=== PATIENT | female | born 1955 | race Two or more races ===

== ENCOUNTER 2016-08-11 12:41 | Emergency (ER) | payer BC, OTHER ==
[~2016-08-11 12:41] MED LIST: CIPR500T94 PO; GLIP10TA13 PO; HYDR-2666 PO; HYDR-2762 PO; INSU100I13 SQ; LISINOPRIL PO; METF10002 PO; PHEN-373 PO; SIMVASTATIN PO
[2016-08-11 12:46] VITALS: BP 156/94
--- NOTE | 2016-08-11 13:11 | RAD ---
Exam: PA and lateral chest radiograph History: Cough, sore throat for several days. Comparison: CT chest 07/02/2016. Findings: Cardiomediastinal silhouette is within normal limits for size. Bilateral lung marin are free of focal infiltrate. No pleural effusion is seen. Impression: No acute cardiopulmonary process.
[2016-08-11] MEDS ORDERED: AMOX1TAB61 PO (13:22)
[2016-08-11] MEDS ORDERED: CIPR10DR AD (13:22)
--- NOTE | 2016-08-11 13:22 | PHYS DOC ---
Past Medical History Past Medical History: Diabetes-Type II, High Cholesterol, Hypertension, Kidney Stone Past Surgical History: Hysterectomy Additional Past Surgical Histo: parathyroid removal, kidney stone, left knee miniscus, jenn elbow, fisure Alcohol Use: Occasionally Drug Use: None Adult General Chief Complaint Chief Complaint: COUGH HPI HPI Patient is a 61 year old male presents emergency department stating that she's had a five-day history of cough and congestion. She states that she is also been having bilateral ear pain and discomfort. Nasal congestion. She denies fever, chills or nausea or vomiting. She has been taken NyQuil [id number]-verirke without any relief. She states that her cough is sometimes productive with green phlegm. Review of Systems Review of Systems Constitutional: Denies fever or chills [] Eyes: Denies change in visual acuity, redness, or eye pain [] HENT: nasal congestion denies sore throat [] Respiratory: cough denies shortness of breath [] Cardiovascular: No additional information not addressed in HPI [] Musculoskeletal: Denies back pain or joint pain [] Integument: Denies rash or skin lesions [] Neurologic: Denies headache, focal weakness or sensory changes [] Allergies Allergies Allergies Coded Allergies Type Severity Reaction Last Updated Verified No Known Drug Allergies 03/09/15 No Physical Exam Physical Exam Constitutional: Well developed, well nourished, no acute distress, non-toxic appearance. [] HENT: Normocephalic, atraumatic, bilateral external ears normal, oropharynx moist, no oral exudates, nose normal. Bilateral tympanic membranes appear to be normal. Bilateral ear canals appear to be slightly red with no drainage or discharge noted. Throat with post nasal drip no exudate or uvula deviation noted Eyes: PERRLA, EOMI, conjunctiva normal, no discharge. [] Neck: Normal range of motion, no tenderness, supple, no stridor. [] Cardiovascular:Heart rate regular rhythm, no murmur [] Lungs & Thorax: Bilateral breath sounds clear to auscultation [] Skin: Warm, dry, no erythema, no rash. [] Back: No tenderness Extremities: No tenderness, no cyanosis, no clubbing, ROM intact, no edema. [] Neurologic: Alert and oriented X 3, normal motor function, normal sensory function, no focal deficits noted. [] Psychologic: Affect normal, judgement normal, mood normal. [] Current Patient Data Vital Signs Vital Signs Date Time Temp Pulse Resp B/P Pulse Ox O2 Delivery O2 Flow Rate FiO2 08/11/16 12:46 99.4 128 22 93 Room Air 99.4 EKG EKG [] Radiology/Procedures Radiology/Procedures [][facility] [address] [place] [address] IMAGING REPORT Signed PATIENT: SRAVAN BURKS ACCOUNT: [id number] : 1955 LOCATION: ER AGE: 61 SEX: F EXAM STATUS: PRE ER ORD. PHYSICIAN: BARRY GRAY NP REASON: cough congestion for 5 days PROCEDURE: CHEST PA & LATERAL Exam: PA and lateral chest radiograph History: Cough, sore throat for several days. Comparison: CT chest 07/02/2016. Findings: Cardiomediastinal silhouette is within normal limits for size. Bilateral lung marin are free of focal infiltrate. No pleural effusion is seen. Impression: No acute cardiopulmonary process. DICTATED and SIGNED BY: EVELYNE DUDLEY MD DATE: 08/11/16 1308 CC: BARRY GRAY GLASS TOUGHENING OPERATOR; NO PCP ~ Course & Med Decision Making Course & Med Decision Making Pertinent Labs and Imaging studies reviewed. (See chart for details) She will be placed on Augmentin as well as provided with Cipro eardrops. Patient will be discharged home in stable condition with signs and symptoms to return back to emergency department. Also recommended Tylenol or ibuprofen for fever chills or generalized body aches and discomfort. Patient agrees with discharge instructions treatment regimens and follow-up recommendations. [] Dragon Disclaimer Dragon Disclaimer This electronic medical record was generated, in whole or in part, using a voice recognition dictation system. Departure Departure Impression: Primary Impression: URI (upper respiratory infection) Additional Impression: Otitis externa of both ears Disposition: HOME, SELF-CARE Condition: STABLE Referrals: NO PCP (PCP) Patient Instructions: Otitis Externa, [id number], Upper Respiratory Infection , Adult, [id number] Additional Instructions: Activity as tolerated. Tylenol or ibuprofen for pain and discomfort. As well as fevers. Medication as prescribed. Drink plenty of fluids. You may also use Mucinex DM [id number] to help with her cough and congestion. Follow-up through primary care physician in next 3-5 days. Return back to emergency percent symptoms become worse. Scripts Ciprofloxacin/Hydrocortisone (Cipro Hc Otic Suspension)10 Ml Drops.susp3 Drop AD BID #[address] in bilateral ears for the next 7 days Prov:BARRY GRAY NP 08/11/16 Amoxicillin/Potassium Clav (Augmentin 875-125 Tablet)1 Each Tablet1 Tab PO BID # 20 TAB Prov:BARRY GRAY NP 08/11/16 Problem Qualifiers BARRY GRAY NP Aug 11, 2016 13:22
== END 2016-08-11 13:32 | disposition home or self-care (01) ==
LOC: ER 12:41
DX: J06.9 Acute upper respiratory infection, unspecified (principal); H60.93 Unspecified otitis externa, bilateral; E11.9 Type 2 diabetes mellitus without complications; E78.00 Pure hypercholesterolemia, unspecified; I10 Essential (primary) hypertension
CPT/HCPCS: 71020; 99284

== ENCOUNTER 2017-01-31 12:59 | Emergency (ER) | payer OTHER ==
[~2017-01-31] VITALS: Ht 160 cm; Wt 96.6 kg
[~2017-01-31 12:59] MED LIST changes: +AMOX1TAB61 PO; +CIPR10DR AD; -HYDR-2666 PO; +HYDR-2758 PO; +METF-620 PO; -METF10002 PO; -PHEN-373 PO; +PHEN-444 PO
[2017-01-31 13:20] VITALS: BP 179/87
[2017-01-31] MEDS ORDERED: KETOROLAC TROMETHAMINE 30 MG/ML INJ. IV ONE (13:45)
[2017-01-31 13:53] LABS: BASO % 1 % (0-3); EOS % 1 % (0-3); HEMATOCRIT 48.9 % (36.0-47.0); HEMOGLOBIN 15.8 g/dL (12.0-15.5); LYMPH # 2.4 x10^3/uL (1.0-4.8); LYMPH % 27 % (24-48); MEAN CORPUSCULAR HEMOGLOBIN 27 pg (25-35); MEAN CORPUSCULAR HGB CONC 32 g/dL (31-37); MEAN CORPUSCULAR VOLUME 84 fL (79-100); MONO % 6 % (0-9); NEUT % 66 % (31-73); PLATELET COUNT 232 x10^3/uL (140-400); RED BLOOD COUNT 5.83 x10^6/uL (3.50-5.40); RED CELL DISTRIBUTION WIDTH 13.8 % (11.5-14.5)
[2017-01-31 14:00] LABS: CALCIUM 9.3 mg/dL (8.5-10.1); CREATININE 0.8 mg/dL (0.6-1.0); GFR 72.9; POTASSIUM 4.4 mmol/L (3.5-5.1)
[2017-01-31 14:06] LABS: ALBUMIN 3.8 g/dL (3.4-5.0); ALBUMIN/GLOBULIN RATIO 1.1 (1.0-1.7); TOTAL BILIRUBIN 0.5 mg/dL (0.2-1.0); TOTAL PROTEIN 7.3 g/dL (6.4-8.2)
[2017-01-31 14:17] LABS: BACTERIA,URINE 0 /HPF (0-FEW); BILIRUBIN,URINE NEGATIVE (NEG); GLUCOSE,URINE >=1000 mg/dL (NEG); NITRITE,URINE NEGATIVE (NEG); PH,URINE 5.5; PROTEIN,URINE NEGATIVE (NEG-TRACE); SQUAMOUS EPITHELIAL CELL,UR FEW /LPF; UROBILINOGEN,URINE 0.2 mg/dL (0.2 mg/dL)
--- NOTE | 2017-01-31 14:30 | RAD ---
Indication severe left flank pain. Axial images through the abdomen and pelvis were obtained. No IV or gastrointestinal contrast was administered. The examination was tailored for the detection of renal and/or ureteral calculi. Note is made of a similar examination 03/04/2015. There is a tiny pleural-based nodule at the left lung base similar to the previous exam. An acute or significant finding at either lung base is not seen. The liver and spleen appear unremarkable and the gallbladder appears grossly normal. No pancreatic abnormality is seen. No adrenal masses are seen. There is a left intrarenal calculus measuring approximately 4 mm. There is no hydronephrosis hydroureter or calcification seen along the course of either ureter. There is a small amount of air in the urinary bladder. This may reflect recent instrumentation. Clinical correlation advised. Diverticular disease is seen throughout the large bowel. This is most pronounced in the sigmoid colon. Active inflammation is not seen. Acute finding in the pelvis is not apparent. 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 Left intrarenal calculus. Minute amount of air in the urinary bladder may reflect instrumentation. Clinical correlation advised. PQRS Compliance Statement: One or more of the following individualized dose reduction techniques were utilized for this examination: 1. Automated exposure control 2. Adjustment of the mA and/or kV according to patient size 3. Use of iterative reconstruction technique
--- NOTE | 2017-01-31 16:00 | PHYS DOC ---
Past Medical History Past Medical History: Diabetes-Type II, High Cholesterol, Hypertension, Kidney Stone Past Surgical History: Hysterectomy Additional Past Surgical Histo: parathyroid removal, kidney stone, left knee miniscus, jenn elbow, fisure Alcohol Use: Occasionally Drug Use: None Adult General Chief Complaint Chief Complaint: FLANK PAIN [facility] HPI Patient is a 61 year old [f__sex] who presents with [] Review of Systems Review of Systems Constitutional: Denies fever or chills [] Eyes: Denies change in visual acuity, redness, or eye pain [] HENT: Denies nasal congestion or sore throat [] Respiratory: Denies cough or shortness of breath [] Cardiovascular: No additional information not addressed in HPI [] GI: Denies abdominal pain, nausea, vomiting, bloody stools or diarrhea [] : Denies dysuria or hematuria [] Musculoskeletal: Denies back pain or joint pain [] Integument: Denies rash or skin lesions [] Neurologic: Denies headache, focal weakness or sensory changes [] Endocrine: Denies polyuria or polydipsia [] Current Medications Current Medications Current Medications Medications (Trade) Dose Ordered Sig/Sydney Start Time Stop Time Status Last Admin Dose Admin Ketorolac Tromethamine (Toradol) 30 mg 1X ONCE 01/31/17 13:45 01/31/17 13:46 DC 01/31/17 14:21 30 MG Allergies Allergies Allergies Coded Allergies Type Severity Reaction Last Updated Verified No Known Drug Allergies 03/09/15 No Physical Exam Physical Exam Constitutional: Well developed, well nourished, no acute distress, non-toxic appearance. [] HENT: Normocephalic, atraumatic, bilateral external ears normal, oropharynx moist, no oral exudates, nose normal. [] Eyes: PERRLA, EOMI, conjunctiva normal, no discharge. [] Neck: Normal range of motion, no tenderness, supple, no stridor. [] Cardiovascular:Heart rate regular rhythm, no murmur [] Lungs & Thorax: Bilateral breath sounds clear to auscultation [] Abdomen: Bowel sounds normal, soft, no tenderness, no masses, no pulsatile masses. [] Skin: Warm, dry, no erythema, no rash. [] Back: No tenderness, no CVA tenderness. [] Extremities: No tenderness, no cyanosis, no clubbing, ROM intact, no edema. [] Neurologic: Alert and oriented X 3, normal motor function, normal sensory function, no focal deficits noted. [] Psychologic: Affect normal, judgement normal, mood normal. [] Current Patient Data Vital Signs Vital Signs Date Time Temp Pulse Resp B/P (MAP) Pulse Ox O2 Delivery O2 Flow Rate FiO2 01/31/17 13:20 97.9 109 18 179/87 (117) 94 Room Air 97.9 Lab Values Laboratory Tests Test 01/31/17 13:16 01/31/17 13:25 Urine Collection Type Unknown Urine Color Yellow Urine Clarity Clear Urine pH 5.5 Urine Specific [place] 1.010 Urine Protein Negative mg/dL (NEG-TRACE) Urine Glucose (UA) >=1000 mg/dL (NEG) Urine Ketones (Stick) Negative mg/dL (NEG) Urine Blood Small (NEG) Urine Nitrite Negative (NEG) Urine Bilirubin Negative (NEG) Urine Urobilinogen Dipstick 0.2 mg/dL (0.2 mg/dL) Urine Leukocyte Esterase Trace (NEG) Urine RBC 3-5 /HPF (0-2) Urine WBC 11-20 /HPF (0-4) Urine Squamous Epithelial Cells Few /LPF Urine Bacteria 0 /HPF (0-FEW) White Blood Count 9.0 x10^3/uL (4.0-11.0) Red Blood Count 5.83 x10^6/uL (3.50-5.40) H Hemoglobin 15.8 g/dL (12.0-15.5) H Hematocrit 48.9 % (36.0-47.0) H Mean Corpuscular Volume 84 fL (79-100) Mean Corpuscular Hemoglobin 27 pg (25-35) Mean Corpuscular Hemoglobin Concent 32 g/dL (31-37) Red Cell Distribution Width 13.8 % (11.5-14.5) Platelet Count 232 x10^3/uL (140-400) Neutrophils (%) (Auto) 66 % (31-73) Lymphocytes (%) (Auto) 27 % (24-48) Monocytes (%) (Auto) 6 % (0-9) Eosinophils (%) (Auto) 1 % (0-3) Basophils (%) (Auto) 1 % (0-3) Neutrophils # (Auto) 6.0 x10^3uL (1.8-7.7) Lymphocytes # (Auto) 2.4 x10^3/uL (1.0-4.8) Monocytes # (Auto) 0.5 x10^3/uL (0.0-1.1) Eosinophils # (Auto) 0.1 x10^3/uL (0.0-0.7) Basophils # (Auto) 0.0 x10^3/uL (0.0-0.2) Sodium Level 140 mmol/L (136-145) Potassium Level 4.4 mmol/L (3.5-5.1) Chloride Level 102 mmol/L (98-107) Carbon Dioxide Level 28 mmol/L (21-32) Anion Gap 10 (6-14) Blood Urea Nitrogen 14 mg/dL (7-20) Creatinine 0.8 mg/dL (0.6-1.0) Estimated GFR (Cockcroft-Gault) 72.9 BUN/Creatinine Ratio 18 (6-20) Glucose Level 238 mg/dL (70-99) H Calcium Level 9.3 mg/dL (8.5-10.1) Total Bilirubin 0.5 mg/dL (0.2-1.0) Aspartate Amino Transferase (AST) 23 U/L (15-37) Alanine Aminotransferase (ALT) 33 U/L (14-59) Alkaline Phosphatase 107 U/L (46-116) Total Protein 7.3 g/dL (6.4-8.2) Albumin 3.8 g/dL (3.4-5.0) Albumin/Globulin Ratio 1.1 (1.0-1.7) Lipase 492 U/L (73-393) H Laboratory Tests 01/31/17 13:25 Laboratory Tests 01/31/17 13:25 EKG EKG [] Radiology/Procedures Radiology/Procedures [] Course & Med Decision Making Course & Med Decision Making Pertinent Labs and Imaging studies reviewed. (See chart for details) [] Dragon Disclaimer Dragon Disclaimer This electronic medical record was generated, in whole or in part, using a voice recognition dictation system. Departure Departure Impression: Primary Impression: Low back pain Additional Impressions: Hyperglycemia Elevated lipase Disposition: HOME, SELF-CARE Condition: GOOD Referrals: XIMENA MONTES (PCP) Patient Instructions: Back Pain, Adult, Hyperglycemia Additional Instructions: Your low back pain today is not associated with a kidney stone or kidney infection. Take ibuprofen as needed for pain 800 g every 6 hours. Her glucose was mildly elevated at 238. Be sure to comply with her diabetic diet as well as your medication regimen. Your lipase was elevated at 492. This is an abnormal range for this enzyme associated with her pancreas. Follow-up with your doctor for recheck and further workup and treatment as needed. Return immediately For new severe worsening symptoms Problem Qualifiers EVELYNE AQUINO MD Jan 31, 2017 16:00
== END 2017-01-31 16:25 | disposition home or self-care (01) ==
LOC: ER 12:59
DX: M54.5 Low back pain (principal); E11.65 Type 2 diabetes mellitus with hyperglycemia; R74.8 Abnormal levels of other serum enzymes; E78.00 Pure hypercholesterolemia, unspecified; I10 Essential (primary) hypertension; E89.0 Postprocedural hypothyroidism; Z90.710 Acquired absence of both cervix and uterus; Z87.442 Personal history of urinary calculi
CPT/HCPCS: 36415; 74176; 80053; 81001; 83690; 85027; 96374; 99285; J1885

== ENCOUNTER → 2017-12-04 | Outpatient (CLI) | payer OTHER | END | disposition home or self-care (01) | LOC: KCIC US 13:33 | DX: R19.01 Right upper quadrant abdominal swelling, mass and lump (principal) | CPT/HCPCS: 76882 ==

== ENCOUNTER 2019-06-16 09:26 | Emergency (ER) | payer OTHER ==
[~2019-06-16] VITALS: Ht 160 cm; Wt 95.3 kg
[~2019-06-16 09:26] MED LIST changes: -HYDR-2758 PO; +HYDR-2761 PO; -HYDR-2762 PO; +HYDR-2765 PO; -METF-620 PO; +METF10007 PO
[2019-06-16 09:38] VITALS: BP 170/98
--- NOTE | 2019-06-16 10:14 | PHYS DOC ---
Past Medical History Past Medical History: Diabetes-Type II, High Cholesterol, Hypertension, Kidney Stone (BARRY VARGHESE APRN) Past Surgical History: Hysterectomy Additional Past Surgical Histo: parathyroid removal, kidney stone, left knee miniscus, jenn elbow, fisure (BARRY VARGHESE APRN) Alcohol Use: Occasionally Drug Use: None (BARRY VARGHESE APRN) Adult General Chief Complaint Chief Complaint: KNEE INJURY HPI HPI Patient is a 64 year old female who presents with is notably here and was coming into work when she states that her left ankle rolled and she fell to the ground in the parking. Patient states she caught herself with her palms of her hands and her right knee has an abrasion in her right elbow has an abrasion. Patient states her last tetanus is less than 5 years ago. She rates her pain an 8 out of 10. (BARRY VARGHESE APRN) Review of Systems Review of Systems Musculoskeletal: Denies back pain or Left ankle and foot joint pain [] Integument:Abrasion to Right elbow and knee. Denies rash or skin lesions [] All other systems were reviewed and found to be within normal limits, except as documented in this note. (BARRY VARGHESE APRN) Current Medications Current Medications Current Medications Medications (Trade) Dose Ordered Sig/Sydney Start Time Stop Time Status Last Admin Dose Admin Ibuprofen (Motrin) 600 mg 1X ONCE 06/16/19 10:15 06/16/19 10:16 DC 06/16/19 10:12 600 MG Neomycin/ Polymyxin/ Bacitracin (Triple Antibiotic Ointment) 1 pkt 1X ONCE 06/16/19 10:15 06/16/19 10:16 DC 06/16/19 10:42 1 PKT (EVELYNE BRADFORD DO) Allergies Allergies Allergies Coded Allergies Type Severity Reaction Last Updated Verified No Known Drug Allergies 03/09/15 No (EVELYNE BRADFORD DO) Physical Exam Physical Exam Constitutional: Well developed, well nourished, no acute distress, non-toxic appearance. [] HENT: Normocephalic, atraumatic, bilateral external ears normal, oropharynx moist, no oral exudates, nose normal. [] Eyes: PERRLA, EOMI, conjunctiva normal, no discharge. [] Neck: Normal range of motion, no tenderness, supple, no stridor. [] Cardiovascular:Heart rate regular rhythm, no murmur [] Lungs & Thorax: Bilateral breath sounds clear to auscultation [] Abdomen: Bowel sounds normal, soft, no tenderness, no masses, no pulsatile masses. [] Skin: Warm, dry, no erythema, no rash. [] Back: No tenderness, no CVA tenderness. [] Extremities: No tenderness, no cyanosis, no clubbing, ROM intact, no edema. [] Neurologic: Alert and oriented X 3, normal motor function, normal sensory function, no focal deficits noted. [] Psychologic: Affect normal, judgement normal, mood normal. [] (BARRY VARGHESE APRN) Current Patient Data Vital Signs Vital Signs Date Time Temp Pulse Resp B/P (MAP) Pulse Ox O2 Delivery O2 Flow Rate FiO2 06/16/19 09:38 97.9 80 18 170/98 (122) 96 Room Air 97.9 (BRADFORD,EVELYNE Jay DO) EKG EKG [] (BARRY VARGHESE APRN) Radiology/Procedures Radiology/Procedures [] (BARRY VARGHESE APRN) Impressions: [facility] [address] [place] [address] IMAGING REPORT Signed PATIENT: SRAVAN BURKS ACCOUNT: [id number] : 1955 LOCATION: ER AGE: 64 SEX: F EXAM STATUS: REG ER ORD. PHYSICIAN: BARRY VARGHESE APRN REASON: fall, LT ANKLE PAIN PROCEDURE: ANKLE LEFT 3V EXAM: 1. LEFT ANKLE 3 VIEWS. 2. LEFT FOOT 3 VIEWS. HISTORY: Fall, left foot/ankle pain. COMPARISON: None. FINDINGS: There is a small nondisplaced avulsion fracture at the tip of the lateral malleolus. There is mild soft tissue swelling laterally. The alignment of the mortise is maintained. Joint spaces are maintained. No fractures are identified in the foot. Alignment is normal. 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 There is a small plantar calcaneal spur. IMPRESSION: 1. Small nondisplaced avulsion fracture at the tip of the lateral malleolus. Electronically signed by: Monika Castañeda MD (06/16/2019 10:48 AM) [facility] DICTATED and SIGNED BY: ESTHER CASTAÑEDA MD DATE: 06/16/19 1048 (BARRY VARGHESE APRN) Course & Med Decision Making Course & Med Decision Making Alert and oriented. Skin pink warm and dry. Patient not able ta bare weight on Left lower extremity. Patient can fully bend and extend the right elbow. No edema or deformity. Right elbow has a small abrasion with bleeding controlled at this time. Patient also has a abrasion to the right knee. Patient can fully extend and then the right knee. No swelling or bruising, deformity seen. Left pedal pulse present. Patient has tenderness to the posterior and lateral malleolus. Lateral malleolus is 2+ without abrasion, deformity or bruising seen. Patient has limited range of motion due to pain. Patient states she also has some pain to the dorsal foot but she feels it more so in the ankle. The foot is not swollen and there is no deformity. There is no bruising to the foot. Denies numbness or tingling. Abrasion cleaned with Chlorhexidine. Antibiotic ointment placed and telfa applied. Xray shows MPRESSION: 1. Small nondisplaced avulsion fracture at the tip of the lateral malleolus. Patient placed in a walking boot. (BARRY VARGHESE APRN) Dragon Disclaimer Dragon Disclaimer This electronic medical record was generated, in whole or in part, using a voice recognition dictation system. (BARRY VARGHESE APRN) Splinting Splinting : Location: Left ankle Pre-Made Type: Walking boot Pre-Proc Neuro Vasc Exam: normal Post-Proc Neuro Vasc Exam: normal, unchanged from pre-exam (EVELYNE BRADFORD DO) Departure Departure Impression: Primary Impression: Avulsion fracture of ankle Disposition: 01 HOME, SELF-CARE Condition: STABLE Referrals: UNKNOWN PCP NAME (PCP) CICI VILLALOBOS MD Patient Instructions: Ankle Fracture, [id number], Avulsion Fracture Additional Instructions: Follow-up with Dr. Villalobos as soon as possible. Elevate your leg and use ice to help with pain and swelling. Take pain medications as prescribed. Scripts Ibuprofen (IBUPROFEN) 600 Mg Tablet 600 MG PO PRN Q6HRS PRN for INFLAMMATION, #20 TAB Prov: BARRY VARGHESE INSOLE LIP TURNER 06/16/19 Hydrocodone Bit/Acetaminophen (HYDROCODONE-APAP 5-325 ) 1 Tab Tablet 1 TAB PO PRN Q6HRS PRN for PAIN, #15 TAB 0 Refills Prov: BARRY VARGHESE INSOLE LIP TURNER 06/16/19 Attending Signature Attending Signature I have reviewed the PA/PLUMBING WAREHOUSE HELPER's note and plan of care. I was available for consultation as needed during the patient's visit in the emergency department. I agree with the clinical impression, plan, and disposition. (EVELYNE BRADFORD DO) Problem Qualifiers Primary Impression: Avulsion fracture of ankle Encounter type: initial encounter Fracture type: closed Laterality: left Qualified Codes: S82.892A - Other fracture of left lower leg, initial en counter for closed fracture BARRY VARGHESE KAREN Jun 16, 2019 10:14 EVELYNE BRADFORD DO Jun 18, 2019 12:40
[2019-06-16] MEDS ORDERED: IBUPROFEN 200 MG TABLET. PO ONE (10:15)
[2019-06-16] MEDS ORDERED: NEOMY/BACITR/POLYMYXIN OINT PACKET. TP ONE (10:15)
--- NOTE | 2019-06-16 10:51 | RAD ---
EXAM: 1. LEFT ANKLE 3 VIEWS. 2. LEFT FOOT 3 VIEWS. HISTORY: Fall, left foot/ankle pain. COMPARISON: None. FINDINGS: There is a small nondisplaced avulsion fracture at the tip of the lateral malleolus. There is mild soft tissue swelling laterally. The alignment of the mortise is maintained. Joint spaces are maintained. No fractures are identified in the foot. Alignment is normal. 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 There is a small plantar calcaneal spur. IMPRESSION: 1. Small nondisplaced avulsion fracture at the tip of the lateral malleolus. Electronically signed by: Monika Castañeda MD (06/16/2019 10:48 AM) [facility] [place]
[2019-06-16] MEDS ORDERED: IBUP-1007 PO (11:06)
[2019-06-16] MEDS ORDERED: HYDR-2761 PO (11:06)
== END 2019-06-16 11:46 | disposition home or self-care (01) ==
LOC: ER 09:26
DX: S82.65XA Nondisplaced fracture of lateral malleolus of left fibula, initial encounter for closed fracture (principal); E11.8 Type 2 diabetes mellitus with unspecified complications; E78.00 Pure hypercholesterolemia, unspecified; I10 Essential (primary) hypertension; Z90.89 Acquired absence of other organs; Z87.442 Personal history of urinary calculi; W18.39XA Other fall on same level, initial encounter; Y93.89 Activity, other specified; Y92.481 Parking lot as the place of occurrence of the external cause; Y99.8 Other external cause status
CPT/HCPCS: 73610; 73630; 99284

== ENCOUNTER 2019-06-22 17:45 | Emergency (ER) | payer OTHER ==
[~2019-06-22] VITALS: Ht 160 cm; Wt 95.3 kg
[~2019-06-22 17:45] MED LIST changes: +IBUP-1007 PO
[2019-06-22 18:00] VITALS: BP 149/88
--- NOTE | 2019-06-22 18:23 | PHYS DOC ---
Past Medical History Past Medical History: Diabetes-Type II, High Cholesterol, Hypertension, Kidney Stone (EVELYNE GAYLE APRN) Past Surgical History: Hysterectomy Additional Past Surgical Histo: parathyroid removal, kidney stone, left knee miniscus, jenn elbow, fisure (EVELYNE GAYLE APRN) Alcohol Use: Occasionally Drug Use: None (EVELYNE GAYLE APRN) Adult General Chief Complaint Chief Complaint: PAIN CONTROL HPI HPI Patient is a 64 year old female who works here and was coming into work on 06/16 when she states that her left ankle rolled and she fell to the ground in the parking. The patient was seen at that time and diagnosed with lateral medial malleolus. The patient refused a splint at the time she was initially seen. She has been walking on the fracture with an orthopedic boot since that time and states she is having pain control issues. (EVELYNE GAYLE APRN) Review of Systems Review of Systems Constitutional: Denies fever or chills [] Eyes: Denies change in visual acuity, redness, or eye pain [] HENT: Denies nasal congestion or sore throat [] Respiratory: Denies cough or shortness of breath [] Cardiovascular: No additional information not addressed in HPI [] GI: Denies abdominal pain, nausea, vomiting, bloody stools or diarrhea [] : Denies dysuria or hematuria [] Musculoskeletal: Reports L ankle fracture. Integument: Denies rash or skin lesions [] Neurologic: Denies headache, focal weakness or sensory changes [] Endocrine: Denies polyuria or polydipsia [] Complete systems were reviewed and found to be within normal limits, except as documented in this note. (EVELYNE GAYLE APRN) Allergies Allergies Allergies Coded Allergies Type Severity Reaction Last Updated Verified No Known Drug Allergies 03/09/15 No (VICTORIANO CARMEN MD) Physical Exam Physical Exam Constitutional: Well developed, well nourished, no acute distress, non-toxic appearance. [] HENT: Normocephalic, atraumatic, bilateral external ears normal, nose normal. [] Eyes: PERRLA, EOMI, conjunctiva normal, no discharge. [] Neck: Normal range of motion Skin: Warm, dry, no erythema, no rash. [] Back: No tenderness, no CVA tenderness. [] Extremities: Tenderness to L ankle. Neurostatus intact. Neurologic: Alert and oriented X 3, normal motor function, normal sensory function, no focal deficits noted. [] Psychologic: Affect normal, judgement normal, mood normal. [] (EVELYNE GAYLE APRN) Current Patient Data Vital Signs Vital Signs Date Time Temp Pulse Resp B/P (MAP) Pulse Ox O2 Delivery O2 Flow Rate FiO2 06/22/19 18:00 98.2 94 16 149/88 (108) 96 Room Air 98.2 (VICTORIANO CARMEN MD) EKG EKG [] (EVELYNE GAYLE APRN) Radiology/Procedures Radiology/Procedures [] (EVELYNE GAYLE APRN) Course & Med Decision Making Course & Med Decision Making Pertinent Labs and Imaging studies reviewed. (See chart for details) Discussed with patient and will have patient placed in splint and given crutches for better stabilization to help with pain and directed patient no weight bearing. (EVELYNE GAYLE APRN) Course & Med Decision Making Staff Physician Addendum: I was working in the ER during the course of this patient's visit. I was available for consultation as needed, but I was not directly involved in the care of this patient. (VICTORIANO CARMEN MD) Dragon Disclaimer Dragon Disclaimer This electronic medical record was generated, in whole or in part, using a voice recognition dictation system. (EVELYNE GAYLE APRN) Departure Departure Impression: Primary Impression: Fracture of medial malleolus, left, closed Disposition: 01 HOME, SELF-CARE Condition: STABLE Referrals: UNKNOWN PCP NAME (PCP) Patient Instructions: Ankle Fracture Additional Instructions: Thank you for visiting [facility]. We appreciate you trusting us with your care. If any additional problems come up don't hesitate to return to visit us. Please follow up with your primary care provider so they can plan additional care if needed and know about the problem that you had. If symptoms worsen come back to the Emergency Department. Any concerning symptoms that start such as chest pain, shortness of air, weakness or numbness on one side of the body, running high fevers or any other concerning symptoms return to the ER. Please keep your ortho appointment as scheduled. Problem Qualifiers Primary Impression: Fracture of medial malleolus, left, closed Encounter type: initial encounter Fracture alignment: nondisplaced Qualified Codes: S82.55XA - Nondisplaced fracture of medial malleolus of left tibia, initial encounter for closed fracture EVELYNE GAYLE APRN Jun 22, 2019 18:23 VICTORIANO CARMEN MD Jun 23, 2019 00:34
== END 2019-06-22 18:51 | disposition home or self-care (01) ==
LOC: ER 17:45
DX: S82.55XA Nondisplaced fracture of medial malleolus of left tibia, initial encounter for closed fracture (principal); E11.9 Type 2 diabetes mellitus without complications; E78.00 Pure hypercholesterolemia, unspecified; I10 Essential (primary) hypertension; Z87.442 Personal history of urinary calculi; Z90.710 Acquired absence of both cervix and uterus; E89.0 Postprocedural hypothyroidism; W01.0XXA Fall on same level from slipping, tripping and stumbling without subsequent striking against object, initial encounter; Y93.89 Activity, other specified; Y92.69 Other specified industrial and construction area as the place of occurrence of the external cause; Y99.0 Civilian activity done for income or pay
CPT/HCPCS: 29515; 99283

== ENCOUNTER → 2019-07-16 | Outpatient (CLI) | payer OTHER ==
[2019-06-22 18:00] VITALS: BP 149/88
--- NOTE | 2019-07-16 18:21 | RAD ---
STUDY: MRI of the left lower extremity - ankle - without contrast INDICATION: Pain and swelling. History of a malleolar fracture. COMPARISON: No prior MRI is available for review. TECHNIQUE: Multiplanar MR imaging of the left ankle performed without the use of intravenous or intra-articular contrast. FINDINGS: Bones/cartilage: Marrow edema at the lateral malleolus in the setting of any avulsion fracture seen at the tip. The fracture fragment is faintly seen on image 11 series 7. Minimal edema at the lateral aspect of the talus and faint periarticular edema scattered elsewhere throughout the hindfoot and midfoot. No additional fracture. Small plantar calcaneal spur. Potential small area of chondral loss at the far lateral aspect of the talar dome, image 12 series 6. Ligaments: The syndesmotic ligaments remain intact. Small amount of fluid within the distal aspect of the syndesmosis relates to the ankle joint effusion. Despite the presence of an avulsion fracture at the fibular tip, fibers of the ATFL and PTFL are still visualized such as seen on image 12 series 4 but are sprained. The CFL is visualized but is thickened, heterogeneous and somewhat wavy in configuration. No findings of acute injury to the medial ankle ligaments. The spring ligament remains visualized. Intact Lisfranc ligaments. Musculotendinous: Mild peroneal tenosynovitis just distal to the lateral malleolus but without tendon tear or dislocation. The flexor tendons are intact. The Achilles and extensors are intact. Sinus Tarsi: Normal signal. Tarsal tunnel: Unremarkable. Plantar fascia: No findings of active plantar fasciitis. Miscellaneous: Mild subcutaneous edema at the lateral ankle and hindfoot. Mildly patulous anterior ankle joint space at the level of the lateral gutter, image 10 series 4. IMPRESSION: 1. As previously diagnosed, subacute avulsion fracture at the tip of lateral malleolus with surrounding marrow edema. No acute fracture seen elsewhere. 2. In the setting of an inversion injury inferred by the radiographic findings, expected sprain of the lateral ankle ligaments with partial tearing of the ATFL and CFL. Intact medial ankle ligaments and syndesmotic ligaments. No tear or dislocation of the tendons at the ankle. Mild peroneal tenosynovitis at the lateral malleolus likely reactive to the adjacent injury. Electronically signed by: FAUSTO SETH MD (07/16/2019 5:45 PM) VIDYA
== END | disposition home or self-care (01) ==
LOC: MRI 14:50
PROVIDERS: ATTEND Physician Assistant
DX: S82.62XA Displaced fracture of lateral malleolus of left fibula, initial encounter for closed fracture (principal); M77.32 Calcaneal spur, left foot; M25.472 Effusion, left ankle; M79.89 Other specified soft tissue disorders; X58.XXXA Exposure to other specified factors, initial encounter; Y93.89 Activity, other specified; Y92.89 Other specified places as the place of occurrence of the external cause; Y99.8 Other external cause status; Z90.710 Acquired absence of both cervix and uterus; Z90.89 Acquired absence of other organs
CPT/HCPCS: 73718

== ENCOUNTER 2019-11-28 23:02 | Emergency (ER) | payer OTHER ==
[~2019-11-28] VITALS: Ht 157.5 cm; Wt 95.0 kg
[2019-11-28 23:09] VITALS: BP 177/114
[2019-11-28 23:37] LABS: BASO % 0 % (0-3); EOS # 0.1 x10^3/uL (0.0-0.7); EOS % 2 % (0-3); HEMATOCRIT 45.4 % (36.0-47.0); HEMOGLOBIN 14.8 g/dL (12.0-15.5); LYMPH # 2.3 x10^3/uL (1.0-4.8); LYMPH % 29 % (24-48); MEAN CORPUSCULAR HEMOGLOBIN 27 pg (25-35); MEAN CORPUSCULAR HGB CONC 33 g/dL (31-37); MEAN CORPUSCULAR VOLUME 83 fL (79-100); MONO # 0.4 x10^3/uL (0.0-1.1); MONO % 5 % (0-9); NEUT % 63 % (31-73); PLATELET COUNT 252 x10^3/uL (140-400); RED CELL DISTRIBUTION WIDTH 13.5 % (11.5-14.5)
--- NOTE | 2019-11-28 23:46 | PHYS DOC ---
Past Medical History Past Medical History: Diabetes-Type II, High Cholesterol, Hypertension, Kidney Stone Past Surgical History: Hysterectomy Additional Past Surgical Histo: parathyroid removal, kidney stone, left knee miniscus, jenn elbow, fisure Smoking Status: Never Smoker Alcohol Use: None Drug Use: None General Adult EDM: Chief Complaint: ITCHING HPI: HPI: Patient is a 64 year old female who presents with painful, itching lesions to the back of her right calf. Patient states that she first noticed him last night and had been scratching. She noticed another lesion this morning. She states that they're getting warmer to the touch and more tender. She states that last night it felt like something was crawling on her leg and she Scratching at it. She is not aware of any bites. She denies any fever. She also denies any chest pain, shortness of breath or cough.[] Review of Systems: Review of Systems: Constitutional: Denies fever or chills. [] Respiratory: Denies cough or shortness of breath. [] Cardiovascular: Denies chest pain or edema. [] Musculoskeletal: Positive right calf pain. [] Integument: Positive erythematous, warm lesions. [] Neurologic: Denies headache, focal weakness or sensory changes. [] Heart Score: Risk Factors: Risk Factors: DM, Current or recent (<one month) smoker, HTN, HLP, family history of CAD, obesity. Risk Scores: Score 0 - 3: 2.5% MACE over next 6 weeks - Discharge Home Score 4 - 6: 20.3% MACE over next 6 weeks - Admit for Clinical Observation Score 7 - 10: 72.7% MACE over next 6 weeks - Early Invasive Strategies Allergies: Allergies: Allergies Coded Allergies Type Severity Reaction Last Updated Verified No Known Drug Allergies 03/09/15 No Physical Exam: PE: Constitutional: Well developed, well nourished, no acute distress, non-toxic appearance. [] Neck: Normal range of motion, no tenderness, supple, no stridor. [] Cardiovascular: Regular rate and rhythm[] Lungs & Thorax: Bilateral breath sounds clear to auscultation [] Skin: Warm, dry. Examination of the right calf demonstrates patches of erythema measuring approximately 5 cm in diameter with warmth and slight induration along with excoriations. [] Current Patient Data: Labs: Laboratory Tests Test 11/28/19 23:25 White Blood Count 8.0 x10^3/uL (4.0-11.0) Red Blood Count 5.50 x10^6/uL (3.50-5.40) H Hemoglobin 14.8 g/dL (12.0-15.5) Hematocrit 45.4 % (36.0-47.0) Mean Corpuscular Volume 83 fL (79-100) Mean Corpuscular Hemoglobin 27 pg (25-35) Mean Corpuscular Hemoglobin Concent 33 g/dL (31-37) Red Cell Distribution Width 13.5 % (11.5-14.5) Platelet Count 252 x10^3/uL (140-400) Neutrophils (%) (Auto) 63 % (31-73) Lymphocytes (%) (Auto) 29 % (24-48) Monocytes (%) (Auto) 5 % (0-9) Eosinophils (%) (Auto) 2 % (0-3) Basophils (%) (Auto) 0 % (0-3) Neutrophils # (Auto) 5.0 x10^3/uL (1.8-7.7) Lymphocytes # (Auto) 2.3 x10^3/uL (1.0-4.8) Monocytes # (Auto) 0.4 x10^3/uL (0.0-1.1) Eosinophils # (Auto) 0.1 x10^3/uL (0.0-0.7) Basophils # (Auto) 0.0 x10^3/uL (0.0-0.2) Laboratory Tests 11/28/19 23:25 Vital Signs: Vital Signs Date Time Temp Pulse Resp B/P (MAP) Pulse Ox O2 Delivery O2 Flow Rate FiO2 11/28/19 23:09 98.0 97 20 96 Room Air 98.0 EKG: EKG: [] Radiology/Procedures: Radiology/Procedures: [] Course & Med Decision Making: Course & Med Decision Making Pertinent Labs and Imaging studies reviewed. (See chart for details) [] Dragon Disclaimer: Dragon Disclaimer: This electronic medical record was generated, in whole or in part, using a voice recognition dictation system. Departure Departure Impression: Primary Impression: Insect bite Qualified Codes: W57.XXXA - Bitten or stung by nonvenomous insect and other nonvenomous arthropods, initial encounter Additional Impression: Cellulitis Qualified Codes: L03.115 - Cellulitis of right lower limb Disposition: 01 HOME, SELF-CARE Condition: STABLE Referrals: UNKNOWN PCP NAME (PCP) Patient Instructions: Cellulitis, Insect Bite Scripts Tramadol Hcl (TRAMADOL HCL) 50 Mg Tablet 50 MG PO Q6HRS PRN for PAIN, #12 TAB Prov: UMA ENGLISH Jr. DO 11/29/19 Sulfamethoxazole/Trimethoprim (BACTRIM DS TABLET) 1 Each Tablet 1 TAB PO BID for 10 Days, #20 TAB 0 Refills Prov: UMA ENGLISH Jr. DO 11/29/19 UMA ENGLISH Jr. DO November 28, 2019 23:46
[2019-11-29] MEDS ORDERED: TRAM50TA PO (00:18)
[2019-11-29] MEDS ORDERED: SULF1TAB24 PO (00:18)
[2019-11-29] MEDS: SMZ/TMP 800/160MG TABLET. PO ONE (00:53)
[2019-11-29] MEDS: IBUPROFEN 200 MG TABLET. PO ONE (00:54)
== END 2019-11-29 00:55 | disposition home or self-care (01) ==
LOC: ER 23:02
DX: G89.11 Acute pain due to trauma (principal); L03.115 Cellulitis of right lower limb; M79.661 Pain in right lower leg; L53.9 Erythematous condition, unspecified; E11.9 Type 2 diabetes mellitus without complications; I10 Essential (primary) hypertension; E78.00 Pure hypercholesterolemia, unspecified; Z87.442 Personal history of urinary calculi; Z90.710 Acquired absence of both cervix and uterus; Z98.890 Other specified postprocedural states; Y29.XXXA Contact with blunt object, undetermined intent, initial encounter; Y93.89 Activity, other specified; Y92.89 Other specified places as the place of occurrence of the external cause; Y99.8 Other external cause status
CPT/HCPCS: 36415; 85025; 85379; 86140; 99283

== ENCOUNTER 2020-02-23 21:32 | Emergency (ER) | payer OTHER ==
[~2020-02-23] VITALS: Ht 160 cm; Wt 95.4 kg
[~2020-02-23 21:32] MED LIST changes: +SULF1TAB24 PO; +TRAM50TA PO
[2020-02-23] MEDS ORDERED: KETOROLAC 60 MG/2 ML VIAL. IM ONE (23:15)
--- NOTE | 2020-02-23 23:32 | PHYS DOC ---
Past Medical History Past Medical History: Diabetes-Type II, High Cholesterol, Hypertension, Kidney Stone Past Surgical History: Hysterectomy Additional Past Surgical Histo: parathyroid removal, kidney stone, left knee miniscus, jenn elbow, fisure Smoking Status: Never Smoker Alcohol Use: None Drug Use: None General Adult EDM: Chief Complaint: LOWER EXT PAIN HPI: HPI: Patient is a 64-year-old employee here at [employer] who presents with right foot pain. She states she was sitting in her desk and turned the wrong way and felt some pain on the dorsal aspect of her foot. She states she has been walking quite a bit today and it is been sore. She states she thinks it might be a little swollen. There is no bruising. There was no blunt trauma. [] Review of Systems: Review of Systems: Constitutional: Denies fever or chills. [] Musculoskeletal: Per HPI [] Integument: Denies rash. [] Heart Score: Risk Factors: Risk Factors: DM, Current or recent (<one month) smoker, HTN, HLP, family history of CAD, obesity. Risk Scores: Score 0 - 3: 2.5% MACE over next 6 weeks - Discharge Home Score 4 - 6: 20.3% MACE over next 6 weeks - Admit for Clinical Observation Score 7 - 10: 72.7% MACE over next 6 weeks - Early Invasive Strategies Current Medications: Current Medications Medications (Trade) Dose Ordered Sig/[facility] Start Time Stop Time Status Last Admin Dose Admin Ketorolac Tromethamine (Toradol Im) 60 mg 1X ONCE 02/23/20 23:15 02/23/20 23:16 DC Allergies: Allergies: Allergies Coded Allergies Type Severity Reaction Last Updated Verified No Known Drug Allergies 03/09/15 No Physical Exam: PE: Constitutional: Well developed, well nourished, no acute distress, non-toxic appearance. [] HENT: Normocephalic, atraumatic, bilateral external ears normal, oropharynx moist, no oral exudates, nose normal. [] Skin: Warm, dry, no erythema, no rash. [] Back: No tenderness, no CVA tenderness. [] Extremities: Right foot is tender to palp there is no obvious swelling or deformity no ecchymosis [] Neurologic: Alert and oriented X 3, normal motor function, normal sensory function, no focal deficits noted. [] Psychologic: Anxious [] EKG: EKG: [] Radiology/Procedures: Radiology/Procedures: [] Impression: REASON: right foot injury, PAIN AND SWELLING ANTERIOR MID RT FOOT PROCEDURE: FOOT RIGHT 3V EXAM: AP, oblique and lateral views the right foot DATE: 02/23/2020 11:05 PM INDICATION: Right foot pain and injury. Swelling anterior mid foot. COMPARISON: No Prior FINDINGS: No acute fracture or dislocation. There is no tarsometatarsal offset on this nonweightbearing view. Soft tissue swelling about the forefoot-mid foot. Mild deformity of the tuft of the great toe distal phalanx, possibly old fracture or injury. Joint spaces are grossly preserved without significant degenerative/proliferative change. IMPRESSION: 1. No acute fracture or dislocation. If there is persistent clinical concern for fracture, follow-up radiographs in 10-14 days is recommended. 2. Soft tissue swelling about the forefoot-mid foot. Course & Med Decision Making: Course & Med Decision Making Pertinent Labs and Imaging studies reviewed. (See chart for details) [] Dragon Disclaimer: Dragon Disclaimer: This electronic medical record was generated, in whole or in part, using a voice recognition dictation system. Departure Departure Impression: Primary Impression: Right foot sprain Qualified Codes: S93.601A - Unspecified sprain of right foot, initial encounter Disposition: 01 HOME, SELF-CARE Condition: STABLE Referrals: NO PCP (PCP) Patient Instructions: Foot Sprain Additional Instructions: Return to the emergency department with any new or concerning symptoms Scripts Naproxen (NAPROXEN) 500 Mg Tablet 1 TAB PO BID PRN for PAIN, #30 TAB 1 Refill Prov: JOHANNY BURCH DO 02/23/20 Justicifation of Admission Dx: Justifications for Admission: Justification of Admission Dx: No JOHANNY BURCH DO Feb 23, 2020 23:32
--- NOTE | 2020-02-23 23:37 | RAD ---
EXAM: AP, oblique and lateral views the right foot DATE: 02/23/2020 11:05 PM INDICATION: Right foot pain and injury. Swelling anterior mid foot. COMPARISON: No Prior FINDINGS: No acute fracture or dislocation. There is no tarsometatarsal offset on this nonweightbearing view. Soft tissue swelling about the forefoot-mid foot. Mild deformity of the tuft of the great toe distal phalanx, possibly old fracture or injury. Joint spaces are grossly preserved without significant degenerative/proliferative change. IMPRESSION: 1. No acute fracture or dislocation. If there is persistent clinical concern for fracture, follow-up radiographs in 10-14 days is recommended. 2. Soft tissue swelling about the forefoot-mid foot. Electronically signed by: Jose A Baeza MD (02/23/2020 11:34 PM) SAEED
[2020-02-23] MEDS ORDERED: NAPR-514 PO (23:40)
[2020-02-23 23:45] VITALS: BP 148/95
== END 2020-02-23 23:50 | disposition home or self-care (01) ==
LOC: ER 21:32
DX: S93.691A Other sprain of right foot, initial encounter (principal); E11.9 Type 2 diabetes mellitus without complications; E78.00 Pure hypercholesterolemia, unspecified; I10 Essential (primary) hypertension; Z90.710 Acquired absence of both cervix and uterus; Z87.891 Personal history of nicotine dependence; Z98.890 Other specified postprocedural states; X58.XXXA Exposure to other specified factors, initial encounter; Y93.89 Activity, other specified; Y92.89 Other specified places as the place of occurrence of the external cause; Y99.8 Other external cause status
CPT/HCPCS: 73630; 96372; 99283; J1885

== ENCOUNTER → 2020-08-19 | Outpatient (CLI) | payer MEDICARE ==
[~2020-08-19] MED LIST changes: +NAPR-514 PO
--- NOTE | 2020-08-19 17:06 | RAD ---
INDICATION: Reason: LUMBAR BACK PAIN. RIGHT SIDED RADICULOPATHY / Spl. Instructions: / History: COMPARISON: None. IMPRESSION: Lumbar spine: 3 views obtained. Grade 1 anterolisthesis of L5 on S1 with suspected pars defect at L5. Degenerative changes throughout the lumbar spine with facet hypertrophy as well as osteophyte format ion at the vertebral body endplates. A definite acute fracture line is not seen. Electronically signed by: Adalberto Bustillos MD (08/19/2020 5:04 PM) [id number]
== END ==
LOC: RAD 13:58
PROVIDERS: ATTEND Nurse Practitioner Family
DX: M47.816 Spondylosis without myelopathy or radiculopathy, lumbar region (principal); M25.78 Osteophyte, vertebrae; M54.5 Low back pain
CPT/HCPCS: 72100